=== PATIENT | male | born 2000 | race Caucasian/White ===

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

== ENCOUNTER 2024-02-24 11:55 | Outpatient (CLI) | payer BC, SELFPAY ==
[2024-02-24 11:30] LABS: Basophils # 0.1 K/mm3 (0-0.2); Basophils % 0.4 % (0.1-2.0); Eosinophils # 0.3 K/mm3 (0.0-0.4); Eosinophils % 1.4 % (0.1-12.0); Hemoglobin 16.9 g/dL (14.1-18.0); Lymphocytes # 2.1 K/mm3 (0.7-4.5); Mean Corpuscular HGB Conc 33.8 g/dL (31.8-35.4); Mean Corpuscular Hemoglobin 27.9 pg (27.0-31.2); Mean Corpuscular Volume 82.6 fl (80-94); Mean Platelet Volume 9.3 fl (7.4-10.4); Monocytes # 2.2 K/mm3 (0.1-1.0); Monocytes % 11.2 % (1.7-9.3); Neutrophils # 13.8 K/mm3 (1.8-7.8); Neutrophils % 70.8 % (37.0-80.0); Platelet Count 428 K/mm3 (142-424); Red Blood Count 6.05 M/mm3 (4.60-6.20); Red Cell Distribution Width 15.8 % (11.5-17.5); White Blood Count 19.5 K/mm3 (4.8-10.8)
[2024-02-24 11:33] LABS: MANUAL DIFFERENTIAL MANUAL DIFFERENTIAL (MANUAL DIFF)
[2024-02-24 11:50] LABS: Alanine Aminotransferase 36 U/L (12-78); Albumin Level 4.4 g/dl (3.5-5.0); Albumin/Globulin Ratio 1.6 (1.1-1.8); Alkaline Phosphatase 73 U/L (38-126); Amylase 123 U/L (30-110); Aspartate Amino Transferase 43 U/L (17-59); Bilirubin,Total 0.4 mg/dl (0.2-1.3); Blood Urea Nitrogen 12 mg/dl (9-20); Carbon Dioxide 30 mmol/L (22.0-30.0); Chloride 97 mmol/L (98-107); Estimated Glomerular Filt Rate 84 ml/min (>60); GFR (African American) 101 ML/MIN (>60); Globulin 2.8 g/dL (1.3-3.2); Glucose 91 mg/dl (74-100); Sodium 136 mmol/L (136-145); Total Protein,Serum 7.2 g/dl (6.3-8.2)
[2024-02-24 12:25] LABS: Anion Gap 14.8 mEq/L (5-15); Potassium 5.8 mmoL/L (3.5-5.1)
[2024-02-24 12:35] LABS: Lymphocytes % 21 % (10-50); Monocytes % 2 % (2-9); Neutrophils % 77 % (42-76); Platelet Estimate Normal; RBC Morphology Normal; Total Cells Counted 100
== END 2024-02-24 23:59 | disposition home or self-care (01) ==
LOC: LAB.DROPOF 11:55
PROVIDERS: PCP Internal Medicine; Visit Provider Internal Medicine
DX: J03.90 Acute tonsillitis, unspecified (principal); R10.13 Epigastric pain
CPT/HCPCS: 80053; 82150; 85007; 85025; 85027; 87070

== ENCOUNTER 2024-02-24 13:00 | Outpatient (CLI) | payer BC, SELFPAY ==
--- NOTE | 2024-02-24 13:04 | CT_ITS ---
FINAL REPORT TECHNIQUE: Axial images through the abdomen and pelvis were performed without contrast. This study was performed with techniques to keep radiation doses as low as reasonably achievable, (ALARA). Individualized dose reduction techniques using automated exposure control or adjustment of mA and/or kV according to the patient's size were employed. CLINICAL HISTORY: Epigastric pain, nausea, leukocytosis COMPARISON: None FINDINGS: Abdomen: The lung bases are clear. The liver parenchyma is homogeneous. The gallbladder is present. The spleen, pancreas, adrenals and kidneys are unremarkable. There is no evidence of kidney stone. Pelvis: The urinary bladder is incompletely distended. The appendix is unremarkable. There is no pelvic mass or inflammation. There is a moderate amount of stool in the colon. IMPRESSION: Moderate stool burden without acute abnormality. Reviewed, Interpreted and Dictated by Moise Sims MD Transcribed by Rea Pérez Authenticated and [facility]
[2024-02-24 14:10] LABS: Alanine Aminotransferase 36 U/L (12-78); Albumin Level 4.3 g/dl (3.5-5.0); Albumin/Globulin Ratio 1.5 (1.1-1.8); Alkaline Phosphatase 77 U/L (38-126); Amylase 135 U/L (30-110); Anion Gap 14.6 mEq/L (5-15); Aspartate Amino Transferase 42 U/L (17-59); Bilirubin,Total 0.3 mg/dl (0.2-1.3); Blood Urea Nitrogen 12 mg/dl (9-20); Calcium 9.8 mg/dl (8.4-10.2); Carbon Dioxide 31 mmol/L (22.0-30.0); Chloride 96 mmol/L (98-107); Creatinine Clearance Estimated 111 mL/min (50-200); Estimated Glomerular Filt Rate 84 ml/min (>60); GFR (African American) 101 ML/MIN (>60); Globulin 2.9 g/dL (1.3-3.2); Glucose 92 mg/dl (74-100); Potassium 5.6 mmoL/L (3.5-5.1); Sodium 136 mmol/L (136-145); Total Protein,Serum 7.2 g/dl (6.3-8.2)
== END 2024-02-24 23:59 | disposition home or self-care (01) ==
PROVIDERS: PCP Internal Medicine; Visit Provider Internal Medicine
DX: R10.13 Epigastric pain (principal); D72.829 Elevated white blood cell count, unspecified
CPT/HCPCS: 74176; 80053; 82150

== ENCOUNTER 2024-02-24 14:40 | Outpatient (CLI) | payer BC, SELFPAY | END 2024-02-24 23:59 | disposition home or self-care (01) | LOC: LAB.DROPOF 02-25 10:15 | PROVIDERS: PCP Internal Medicine; Visit Provider Internal Medicine | DX: Z02.9 Encounter for administrative examinations, unspecified (principal) ==

== ENCOUNTER 2024-06-18 09:15 | Emergency (ER) | payer BC, SELFPAY ==
[2024-06-18 09:27] VITALS: BP 161/92; PULSE 127; RESP 19; TEMP 36.5; O2SAT 99; BMI 22.8
[2024-06-18 09:30] VITALS: BP 138/102; PULSE 144; O2SAT 96
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
--- NOTE | 2024-06-18 09:40 | ECG_ITS ---
APPROVED REPORT Exam: Resting ECG HR:117 bpm ECG Measurements Heart Rate 117 AXES DE 156 P 71 QRSd 109 QRS 119 QT 321 T 31 QTc 391 Conclusion Sinus tachycardia, right axis deviation, normal intervals, LVH strain pattern noted, incomplete right bundle branch block noted, mild elevation of ST segment in V2 however no congruent leads with elevation, there is LVH strain pattern noted. No ischemic changes Electronically signed by : Riccardo Petit, 06/18/2024 09:46:19
--- NOTE | 2024-06-18 09:45 | PC.NURSE ---
FSBS 107
--- NOTE | 2024-06-18 09:56 | PC.NURSE ---
called lab at [phone] for legal blood draw
[2024-06-18 10:26] VITALS: BP 149/104; PULSE 107; O2SAT 97
[2024-06-18 10:34] VITALS: BP 149/104; PULSE 108; RESP 20; TEMP 36.8; O2SAT 98
== END 2024-06-18 10:37 | disposition home or self-care (01) ==
PROVIDERS: Emergency Provider Student in an Organized Health Care Education/Training Program; PCP Internal Medicine
DX: R00.0 Tachycardia, unspecified (principal); V47.5XXA Car driver injured in collision with fixed or stationary object in traffic accident, initial encounter
CPT/HCPCS: 36415; 93005; 99283